=== PATIENT | male | born 1975 | race Hispanic/Latino ===

== ENCOUNTER 2018-07-16 17:52 | Emergency (ER) | payer SELFPAY ==
[2018-07-16] MEDS ORDERED: KETOROLAC TROMETHAMINE 30MG/ML ONE (19:50)
== END 2018-07-16 20:12 | disposition home or self-care (01) ==
LOC: EDH 17:52
DX: S99.912A Unspecified injury of left ankle, initial encounter (principal); M54.5 Low back pain; Z98.890 Other specified postprocedural states; W11.XXXA Fall on and from ladder, initial encounter; Y93.89 Activity, other specified; Y92.89 Other specified places as the place of occurrence of the external cause; Y99.8 Other external cause status
CPT/HCPCS: 70450; 71250; 72125; 73562; 73610; 74176; 96372; 99284; J1885